=== PATIENT | male | born 1925 | race Caucasian/White ===

== ENCOUNTER 2016-10-21 16:54 | Inpatient (IN) | payer MEDICARE, BC ==
--- NOTE | ~2016-10-21 | DS ---
Discharge Summary [address] [place]. [address] NAME: DENISE JONAS : [birth year] STATUS : DIS IN PAT#: [id number] AGE: 89 ADM/REG DATE : 10/21/16 MR#: [id number] REPORT SERV DATE: 10/26/16 DICTATED BY: ROSCOE FRANKEL DATE: 10/26/16 REPORT STATUS : Draft TRANSCRIBED BY: MODL DATE: 10/26/16 ADMISSION DATE: 10/21/2016 DISCHARGE DATE: 10/26/2016 DISCHARGE DIAGNOSES: 1. Pneumonia with sepsis, present on admission, much improved and resolving. 2. Chronic kidney disease. 3. Hypertension. 4. Mild dementia. 5. Atrial fibrillation. 6. History of recent pacemaker placement. 7. Generalized weakness and deconditioned state. CONSULTANTS: None. PROCEDURES: None. HOSPITAL COURSE: This is an 89-year-old gentleman who was admitted to the hospital with a possible HCAP. For details, please refer to H and P by Dr. Lexi Rendon. In summary, the patient was admitted and was treated aggressively with IV fluids as well as broad- spectrum antibiotics. Fortunately, the patient did respond very well, and although the patient was septic on initial presentation, the patient's condition steadily improved. Over the course of the hospital stay, the patient's white blood cell count had normalized and the patient's procalcitonin level also came down to normal levels. All the cultures have been negative and the patient's antibiotics was titrated down to Levaquin which he tolerated well and remained stable on over the past couple of days. The patient was seen by Physical Therapy who recommended a fpc facility discharge, which the patient was agreeable to. The patient is thus now being discharged to [facility] to continue to be cared for as an outpatient. By the day of discharge, the patient was able to come off the oxygen. DISPOSITION: [facility]. DISCHARGE MEDICATIONS: Two more doses of p.o. Levaquin, otherwise no changes to home medications. FOLLOWUP: Please follow up with PCP in the next one to two weeks. A total of 35 minutes spent in coordinating this patient's discharge today. DICTATED BY: MD KAREN Severino/MOUNIKA Discharge Summary [place] [address] [address] [place]. [id number] NAME: DENISE JONAS : [birth year] STATUS : DIS IN PAT#: [id number] AGE: 89 ADM/REG DATE : 10/21/16 MR#: [id number] REPORT SERV DATE: 10/26/16 DICTATED BY: ROSCOE FRANKEL DATE: 10/26/16 REPORT STATUS : Draft TRANSCRIBED BY: MODL DATE: 10/26/16 Roscoe Frankel MD / [id number] CC: MD Opal Severino NP
--- NOTE | ~2016-10-21 | HP ---
History And Physical [place] [id number] [facility] [place]. [address] NAME: DENISE JONAS : [birth year] STATUS : ADM IN [facility]#: [id number] AGE: 89 ADM/REG DATE : 10/21/16 MR#: [id number] REPORT SERV DATE: 10/21/16 DICTATED BY: FRIEDA LUNA DATE: 10/21/16 REPORT STATUS : Draft TRANSCRIBED BY: MODL DATE: 10/21/16 DATE OF ADMISSION: 10/21/2016 HISTORY OF PRESENT ILLNESS: This is a very pleasant 89-year-old male, who was transferred from [facility] because of fever, cough, shaking chills, and temperature was 102 orally and oxygen saturation was 88 on room air. The patient had pacemaker placement on 10/16/[address] Ryan LEYVA. The patient was sent from [facility] with concern of possible pacemaker infection. The patient is also having cough with whitish sputum production. He denies any chest pain. No shortness of breath. He had mild wheezing. He knows that he is at [facility]. He knows that it is the year of 2016. He does not complain of severe pain at the pacemaker site. The pacemaker site looks clean, in healing stage. REVIEW OF SYSTEMS: All 14-point review of systems done and negative except what is stated in the history of present illness. The patient has a little bit slow reaction, but he can answer questions appropriately, and he is very weak. His temperature in the emergency room was 101.8. Blood cultures were already drawn in the emergency room and he was given Zosyn and vancomycin in the emergency room. PAST MEDICAL HISTORY: Collected from the patient as well as from medical records. The patient has history of atrial fibrillation/flutter, hypertension, chronic kidney disease stage 3, dementia, chronic shoulder pain, he is oxygen dependent and he uses 2 L of oxygen by nasal cannula, he has pulmonary hypertension, chronic anemia likely related to chronic kidney disease, history of falls and recent fall according to the medical records that were sent to our emergency department from his primary care physician, he also has history of anemia of chronic disease, glaucoma, skin cancer. History of orthostatic hypotension. He is chronically on Eliquis for his atrial fibrillation/flutter. Questionable history of coronary artery disease, history of pneumonia in the past, history of atelectasis. He also has hypothyroidism. 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 SOCIAL HISTORY: He is a . No alcohol. He never smoked. No recreational drug use. [facility]. He has a son in [place]. His daughter is in [place]. FAMILY HISTORY: The patient cannot recall what medical problems his parents had. ALLERGIES: NO KNOWN DRUG ALLERGIES. HOME MEDICATIONS: Include Tylenol 650 p.o. q.6 hours p.r.n., albuterol two puffs inhaled q.4 hours p.r.n. and nebulized every six hours p.r.n., Eliquis 2.5 p.o. b.i.d., Artificial Tears one drop 4 times a day as needed, vitamin C 500 mg daily, aspirin 81 mg a day, vitamin D 500 units daily, clonidine 0.1 mg p.o. q.8 hours p.r.n. for systolic blood pressure more than 175, Depakote 125 mg at bedtime, Aricept 10 mg daily, Lexapro 10 mg daily, Nexium 20 mg a History And Physical [address] [address] NAME: DENISE JONAS : [birth year] STATUS : ADM IN [facility]#: [id number] AGE: 89 ADM/REG DATE : 10/21/16 MR#: [id number] REPORT SERV DATE: 10/21/16 DICTATED BY: FRIEDA LUNA DATE: 10/21/16 REPORT STATUS : Draft TRANSCRIBED BY: MOUNIKA DATE: 10/21/16 day, Efudex 5% cream apply topically daily p.r.n., folic acid 1 mg daily, glucosamine chondroitin 1 tablet p.o. daily, Atrovent 2 puffs inhaled twice a day, levothyroxine 50 mcg a day, Imodium 2 mg p.o. twice a day p.r.n., Claritin 10 mg p.o. daily as needed, Ativan 0.5 mg p.o. q.6 hours p.r.n. for anxiety, Namenda 5 mg at bedtime, Remeron 15 mg p.o. at bedtime, multivitamins daily, nitroglycerin 0.4 mg sublingually p.r.n., MiraLAX one packet p.o. daily as needed, Senokot 2 tablets p.o. at bedtime, Zanaflex 2 mg p.o. three times a day p.r.n., Ultram 50 mg p.o. q.4 hours p.r.n., trazodone 50 mg at bedtime. PHYSICAL EXAMINATION: GENERAL: Well-nourished, well-developed, obese male, not in acute distress. Resting quietly. Feeling very weak. VITAL SIGNS: Blood pressure 176/52, temperature 101.8, heart rate 98, respiratory rate 12, oxygen saturation 89 on 2 L nasal cannula. HEENT: Head atraumatic, normocephalic. Conjunctivae clear. Pupils are equal and reactive to light and accommodation. Extraocular muscles are intact. NECK: Supple. Trachea is midline. No supraclavicular or cervical lymphadenopathy. LUNGS: Coarse breath sounds bilaterally with mild wheezing. Slightly decreased respiratory effort. CARDIOVASCULAR: Regular rate and rhythm. Point of maximal impulse not displaced. ABDOMEN: Obese, soft, nontender, nondistended. Positive normoactive bowel sounds. EXTREMITIES: No clubbing, no cyanosis. Trace edema. NEUROLOGIC: He is slightly lethargic, but he wakes up very easily. He is just sleepy. He can answer questions. He can follow commands. Muscle strength is 5/5 bilaterally on upper and lower extremities. He is alert. He is oriented to time, place, and person. LABORATORY RESULTS: Sodium 147, potassium 4.7, chloride 111, carbon dioxide 33, BUN 27, creatinine 1.81, blood sugar 125. His baseline creatinine fluctuates from 1.7 to 2, currently creatinine is at baseline. White count 13.7, hemoglobin 11.1, hematocrit 35.6, platelet count 163. Urinalysis did not show any evidence of UTI. Blood cultures are drawn, currently pending. Chest x-ray was done in the emergency room, official report is pending, there is a questionable infiltrate on the right side and cardiomegaly. Influenza A and B screen was negative. Lactic acid level was 1.9. ASSESSMENT AND PLAN: This is a very pleasant 89-year-old male with a history of chronic kidney disease, history of atrial fibrillation/flutter, history of sick sinus syndrome, history of pacemaker placement less than a week ago on 10/16/2016, history of hypertension, presented with: 1. Fever and chills. 2. Leukocytosis secondary to above. 3. Questionable pneumonia as a clinical picture. 4. Question if fever is related to his recent pacemaker placement. 5. Chronic kidney disease with creatinine being at baseline. 6. Hypertension. 7. Mild dementia. 8. History of falls. 9. Chronically on Eliquis. History And Physical [address] [address] NAME: DENISE JONAS : [birth year] STATUS : ADM IN [facility]#: [id number] AGE: 89 ADM/REG DATE : 10/21/16 MR#: [id number] REPORT SERV DATE: 10/21/16 DICTATED BY: FRIEDA LUNA DATE: 10/21/16 REPORT STATUS : Draft TRANSCRIBED BY: MOUNIKA DATE: 10/21/16 We will admit the patient to cardiac telemetry bed. For his fever, his blood cultures are already drawn and he is started on intravenous antibiotics. Intravenous antibiotics are vancomycin and Rocephin, and I will add also oral azithromycin. He has mild wheezing and congestion. We will start him also on albuterol breathing treatment. We will monitor him closely. I will check also procalcitonin level. For further delineation if the patient has pneumonia, we will order CT of the chest without contrast. 1. History of recent pacemaker placement. The patient's skin around the pacemaker looks clean. I do not see any obvious redness or changes in the temperature. We will ask membership assistant to evaluate these. We will consult Dr. Davis, as well as we will check echocardiogram. 2. Chronic kidney disease. His creatinine is currently at baseline. 3. Weakness and mild lethargy secondary to fever, but most of the time he is awake. He is on multiple sedative medications. I wrote to hold them if the patient is oversedated. My partner will see this patient starting tomorrow morning. At the same time, we will check his EKG and troponins. We will check his BNP and TSH, and magnesium. MG/MODL Frieda Luna M.D. / [id number] CC: Opal Calhoun NP
[2016-10-21 16:15] LABS: BASOPHILS 0.3 %; BASOPHILS ABSOLUTE 0.04 10/3/uL (0.0-0.16); EOSINOPHILS ABSOLUTE 0.41 10/3/uL (0.0-0.53); HEMATOCRIT 35.6 % (40.0-51.0); HEMOGLOBIN 11.1 g/dL (13.6-17.8); IMMATURE GRANULOCYTES 0.5 %; IMMATURE GRANULOCYTES ABSOLUTE 0.07 10/3/uL (0.0-0.11); LYMPHOCYTES 11.6 %; LYMPHOCYTES ABSOLUTE 1.59 10/3/uL (0.67-4.30); MEAN CORPUS HGB CONC 31.2 g/dL (32.0-36.0); MEAN CORPUSCULAR HEMOGLOB 28.2 pg (26.0-34.0); MEAN CORPUSCULAR VOLUME 90.4 fL (80-100); MEAN PLATELET VOLUME 10.2 fL (9.2-13.0); MONOCYTES 7.1 %; MONOCYTES ABSOLUTE 0.97 10/3/uL (0.21-1.20); NEUTROPHILS 77.5 %; NEUTROPHILS ABSOLUTE 10.59 10/3/uL (2.02-8.40); RBC DISTRIBUTION WIDTH 17.9 % (12.0-16.0); RED CELL COUNT 3.94 10/6/uL (4.7-6.1); WHITE BLOOD CELLS 13.7 10/3/uL (4.5-10.5)
[2016-10-21 16:22] LABS: MANUAL DIFF NO %; PLATELET COUNT 163 10/3/uL (150-400)
[2016-10-21 16:29] LABS: ALBUMIN 2.6 G/DL (3.5-5.0); CHLORIDE, SERUM 111 MMOL/L (96-112); CO2 (CARBON DIOXIDE) 33 MMOL/L (24-34); CREATININE 1.81 MG/DL (0.70-1.30); GFR AFRICAN AMERICAN 38 ML/MIN (>=60); GFR NON AFRICAN AMERICAN 32 ML/MIN (>=60); POTASSIUM, SERUM 4.7 MMOL/L (3.5-5.3); SGOT(AST) 22 U/L (5-40); SGPT(ALT) 14 U/L (5-65); SODIUM, SERUM 147 MMOL/L (135-148); TOTAL BILIRUBIN 0.3 MG/DL (0-1.2); TOTAL PROTEIN 6.5 G/DL (6.0-8.5)
[2016-10-21 16:30] LABS: A/G RATIO 0.7 (0.7-1.9); ALKALINE PHOSPHATASE 101 U/L (45-117); BUN (BLOOD UREA NITROGEN) 27 MG/DL (6-23); GLOBULIN 3.9 G/DL (2.5-4.1); GLUCOSE, SERUM 125 MG/DL (60-99)
[2016-10-21 16:33] LABS: LACTATE 1.9 MMOL/L (0.3-2.4)
[~2016-10-21 16:54] MED LIST: ALBUTEROL5 INH; ARICEPT10 PO; ASAB PO; ATV.5 PO; CARD60 PO; CAT1 PO; CLARIT10 PO; COSAMIN DS1 TAB PO; D 5000 PO; DEPAKOTE 125 M125 MG PO; DEPASPRINK PO; DUONEB INH; EFUDEX CREAM 5%40 GM TOP; ELIQUIS 2.5 MG2.5 MG PO; FOLIC PO; GGEXPSF PO; GLUCCHONDR PO; IMOD PO; IPRA17AE INH; K-TABS10 MEQ PO; KDUR10 PO; L20 PO; L40 PO; LEVAQUIN750 MG PO; LEVOTHYROXIN25 MCG PO; LEVOTHYROXIN50 MCG PO; LEXAPRO10 PO; LEXAPRO20 PO; LIQUID TEARS OPH; MIRALAX POWDER1 PKT PO; MIRALAXPKT PO; NAMENDA10 MG PO; NAMENDA5 PO; NEXIUM20 M1 PO; NITROQUICK0.4 MG SL; NITROSTAT0.4 MG SL; OCUVITE PO; PRILO PO; PROVHFA INH; PROVHFA PO; REM15 PO; SENTAB PO; SEROQUEL25 PO; T PO; TRAZ50 PO; ULTRAM50 PO; VENTOLIN HFA INH; VITAMIN D31000 UNIT PO; VITC500 PO; ZANAFLEX2 MG PO; [UNRECOGNIZED DRUG - OTHER] TOP
[2016-10-21 17:49] LABS: INFLUENZA A SCREEN NEGATIVE (NEGATIVE); INFLUENZA B SCREEN NEGATIVE (NEGATIVE)
[2016-10-21 18:36] LABS: ASCORBIC ACID (UR NOT ORDER) 40 (NEG); BILIRUBIN, URINE NEGATIVE (NEG); ER URINALYSIS TAT 0 Hrs 08 Mins; KETONE, URINE NEGATIVE (NEG); LEUKOCYTE ESTERASE(NOT OR NEG (NEG); NITRITE (URINE) NEG (NEG); WBC (NOT ORDERED) (RFLEX) 1 (0-5)
[2016-10-22 01:29] LABS: TROPONIN I 0.03 NG/ML (<0.05)
[2016-10-22 01:31] LABS: CK-MB 0.9 NG/ML; CPK 34 U/L (0-200)
[2016-10-22 07:08] LABS: BASOPHILS 0.1 %; BASOPHILS ABSOLUTE 0.01 10/3/uL (0.0-0.16); EOSINOPHILS 3.9 %; EOSINOPHILS ABSOLUTE 0.47 10/3/uL (0.0-0.53); HEMOGLOBIN 9.5 g/dL (13.6-17.8); IMMATURE GRANULOCYTES 0.2 %; IMMATURE GRANULOCYTES ABSOLUTE 0.03 10/3/uL (0.0-0.11); LYMPHOCYTES ABSOLUTE 2.29 10/3/uL (0.67-4.30); MEAN CORPUS HGB CONC 32.2 g/dL (32.0-36.0); MEAN CORPUSCULAR HEMOGLOB 28.7 pg (26.0-34.0); MEAN CORPUSCULAR VOLUME 89.1 fL (80-100); MEAN PLATELET VOLUME 9.6 fL (9.2-13.0); MONOCYTES 7.1 %; MONOCYTES ABSOLUTE 0.86 10/3/uL (0.21-1.20); NEUTROPHILS 69.7 %; PLATELET COUNT 130 10/3/uL (150-400); RBC DISTRIBUTION WIDTH 18.3 % (12.0-16.0); RED CELL COUNT 3.31 10/6/uL (4.7-6.1); WHITE BLOOD CELLS 12.1 10/3/uL (4.5-10.5)
[2016-10-22 07:09] LABS: HEMATOCRIT 29.5 % (40.0-51.0); MANUAL DIFF NO %
[2016-10-22 07:16] LABS: A/G RATIO 0.6 (0.7-1.9); ALBUMIN 2.1 G/DL (3.5-5.0); ALKALINE PHOSPHATASE 80 U/L (45-117); BUN (BLOOD UREA NITROGEN) 25 MG/DL (6-23); CALCIUM, SERUM 8.6 MG/DL (8.5-10.4); CHLORIDE, SERUM 113 MMOL/L (96-112); CO2 (CARBON DIOXIDE) 30 MMOL/L (24-34); CPK 34 U/L (0-200); CREATININE 1.48 MG/DL (0.70-1.30); GFR AFRICAN AMERICAN 48 ML/MIN (>=60); GFR NON AFRICAN AMERICAN 41 ML/MIN (>=60); GLOBULIN 3.3 G/DL (2.5-4.1); GLUCOSE, SERUM 90 MG/DL (60-99); SGOT(AST) 21 U/L (5-40); SGPT(ALT) 13 U/L (5-65); SODIUM, SERUM 148 MMOL/L (135-148); TOTAL BILIRUBIN 0.3 MG/DL (0-1.2); TOTAL PROTEIN 5.4 G/DL (6.0-8.5); TROPONIN I 0.04 NG/ML (<0.05); ULTRASENSITIVE TSH 0.674 MCIU/ML (0.358-3.740)
[2016-10-22 12:26] LABS: C-REACTIVE PROTEIN 75.1 MG/L (<8.0)
[2016-10-22 12:59] LABS: PROCALCITONIN 0.46 ng/mL (<0.5)
[2016-10-22 13:36] LABS: CK-MB 1.1 NG/ML; CPK 45 U/L (0-200); TROPONIN I 0.04 NG/ML (<0.05)
[2016-10-23 06:09] LABS: HEMOGLOBIN 10.4 g/dL (13.6-17.8); MEAN CORPUS HGB CONC 31.6 g/dL (32.0-36.0); MEAN CORPUSCULAR HEMOGLOB 28.7 pg (26.0-34.0); MEAN CORPUSCULAR VOLUME 90.6 fL (80-100); MEAN PLATELET VOLUME 10.1 fL (9.2-13.0); PLATELET COUNT 148 10/3/uL (150-400); RBC DISTRIBUTION WIDTH 17.9 % (12.0-16.0); RED CELL COUNT 3.63 10/6/uL (4.7-6.1); WHITE BLOOD CELLS 10.1 10/3/uL (4.5-10.5)
[2016-10-23 06:11] LABS: HEMATOCRIT 32.9 % (40.0-51.0); MANUAL DIFF YES %
[2016-10-23 06:45] LABS: ANISOCYTOSIS 1+ (5-10/OIF) (0-5/OIF); BAND NEUTROPHILS 6 %; HYPOCHROMIA 1+ (3-10/OIF) (0-2/OIF); LYMPHOCYTES 32 %; LYMPHOCYTES ABSOLUTE (CALC) 3.23 10/3/uL (0.67-4.30); MACROCYTES 1+ (5-10/OIF) (0-5/OIF); MONOCYTES 9 %; MONOCYTES ABSOLUTE (CALC) 0.91 10/3/uL (0.21-1.20); NEUTROPHILS ABSOLUTE (CALC) 5.96 10/3/uL (2.02-8.40); PLATELET ESTIMATE SLT DEC (ADEQUATE); POLYCHROMASIA 1+ (2-5/OIF) (0-1/OIF); SEGMENTED NEUTROPHIL (0) 53 %; TOTAL NUCLEATED CELLS 100
[2016-10-23 10:05] LABS: BUN (BLOOD UREA NITROGEN) 26 MG/DL (6-23); CALCIUM, SERUM 8.8 MG/DL (8.5-10.4); CHLORIDE, SERUM 108 MMOL/L (96-112); CO2 (CARBON DIOXIDE) 33 MMOL/L (24-34); CREATININE 1.56 MG/DL (0.70-1.30); GFR AFRICAN AMERICAN 45 ML/MIN (>=60); GFR NON AFRICAN AMERICAN 39 ML/MIN (>=60); GLUCOSE, SERUM 120 MG/DL (60-99); POTASSIUM, SERUM 4.3 MMOL/L (3.5-5.3); SODIUM, SERUM 145 MMOL/L (135-148)
[2016-10-23 12:29] LABS: BUN (BLOOD UREA NITROGEN) 25 MG/DL (6-23); CALCIUM, SERUM 8.5 MG/DL (8.5-10.4); CHLORIDE, SERUM 110 MMOL/L (96-112); CO2 (CARBON DIOXIDE) 34 MMOL/L (24-34); CREATININE 1.56 MG/DL (0.70-1.30); GFR AFRICAN AMERICAN 45 ML/MIN (>=60); GFR NON AFRICAN AMERICAN 39 ML/MIN (>=60); GLUCOSE, SERUM 111 MG/DL (60-99); POTASSIUM, SERUM 4.2 MMOL/L (3.5-5.3); SODIUM, SERUM 145 MMOL/L (135-148)
[2016-10-23 12:31] LABS: T PROTEIN (ELECT)(NOT OR 5.2 G/DL (6.0-8.5)
[2016-10-24 05:22] LABS: BASOPHILS 0.4 %; BASOPHILS ABSOLUTE 0.04 10/3/uL (0.0-0.16); EOSINOPHILS 5.7 %; EOSINOPHILS ABSOLUTE 0.57 10/3/uL (0.0-0.53); HEMATOCRIT 33.7 % (40.0-51.0); HEMOGLOBIN 10.6 g/dL (13.6-17.8); IMMATURE GRANULOCYTES 0.3 %; IMMATURE GRANULOCYTES ABSOLUTE 0.03 10/3/uL (0.0-0.11); MEAN CORPUS HGB CONC 31.5 g/dL (32.0-36.0); MEAN CORPUSCULAR VOLUME 88.9 fL (80-100); MEAN PLATELET VOLUME 10.5 fL (9.2-13.0); MONOCYTES 7.1 %; MONOCYTES ABSOLUTE 0.71 10/3/uL (0.21-1.20); NEUTROPHILS 43.5 %; NEUTROPHILS ABSOLUTE 4.35 10/3/uL (2.02-8.40); PLATELET COUNT 163 10/3/uL (150-400); RBC DISTRIBUTION WIDTH 17.8 % (12.0-16.0); RED CELL COUNT 3.79 10/6/uL (4.7-6.1)
[2016-10-24 05:25] LABS: MANUAL DIFF NO %
[2016-10-24 05:26] LABS: BUN (BLOOD UREA NITROGEN) 25 MG/DL (6-23); CALCIUM, SERUM 8.8 MG/DL (8.5-10.4); CHLORIDE, SERUM 111 MMOL/L (96-112); CO2 (CARBON DIOXIDE) 32 MMOL/L (24-34); CREATININE 1.53 MG/DL (0.70-1.30); GFR AFRICAN AMERICAN 46 ML/MIN (>=60); GFR NON AFRICAN AMERICAN 40 ML/MIN (>=60); GLUCOSE, SERUM 93 MG/DL (60-99); POTASSIUM, SERUM 4.5 MMOL/L (3.5-5.3); SODIUM, SERUM 147 MMOL/L (135-148)
[2016-10-24 05:45] LABS: C-REACTIVE PROTEIN 57.1 MG/L (<8.0)
[2016-10-24 10:06] LABS: A/G 0.95 RATIO (0.9-2.10); ALB RELATIVE % 48.8 % (60.0-89.0); ALBUMIN (ELECTRO) 2.54 GM/DL (3.2-5.5); ALPHA 1 (ELECTRO) 0.25 GM/DL (0.1-0.4); ALPHA 1 RELAT % (NOT ORD) 4.8 % (1.0-4.0); ALPHA 2 (ELECTRO) 0.88 GM/DL (0.5-1.10); BETA GLOBULIN (SPE) 0.92 GM/DL (0.60-1.30); BETA RELATIVE % 17.6 % (9.0-22.0); GAMMA GLOBULIN (SPE) 0.61 G/DL (0.70-1.60); GAMMA RELAT % 11.8 % (6.0-22.0)
[2016-10-25 05:24] LABS: HEMATOCRIT 32.5 % (40.0-51.0); HEMOGLOBIN 10.3 g/dL (13.6-17.8); MEAN CORPUS HGB CONC 31.7 g/dL (32.0-36.0); MEAN CORPUSCULAR HEMOGLOB 27.9 pg (26.0-34.0); MEAN CORPUSCULAR VOLUME 88.1 fL (80-100); MEAN PLATELET VOLUME 10.5 fL (9.2-13.0); PLATELET COUNT 160 10/3/uL (150-400); RBC DISTRIBUTION WIDTH 17.7 % (12.0-16.0); RED CELL COUNT 3.69 10/6/uL (4.7-6.1); WHITE BLOOD CELLS 12.1 10/3/uL (4.5-10.5)
[2016-10-25 05:25] LABS: MANUAL DIFF YES %
[2016-10-25 05:32] LABS: CALCIUM, SERUM 8.9 MG/DL (8.5-10.4); CHLORIDE, SERUM 107 MMOL/L (96-112); CO2 (CARBON DIOXIDE) 30 MMOL/L (24-34); CREATININE 1.52 MG/DL (0.70-1.30); GFR AFRICAN AMERICAN 46 ML/MIN (>=60); GFR NON AFRICAN AMERICAN 40 ML/MIN (>=60); GLUCOSE, SERUM 94 MG/DL (60-99); POTASSIUM, SERUM 4.6 MMOL/L (3.5-5.3); SODIUM, SERUM 143 MMOL/L (135-148)
[2016-10-25 05:40] LABS: BUN (BLOOD UREA NITROGEN) 29 MG/DL (6-23)
[2016-10-25 05:42] LABS: ANISOCYTOSIS 1+ (5-10/OIF) (0-5/OIF); BAND NEUTROPHILS 3 %; EOSINOPHILS 1 %; EOSINOPHILS ABSOLUTE (CALC) 0.12 10/3/uL (0.0-0.53); LYMPHOCYTES 50 %; LYMPHOCYTES ABSOLUTE (CALC) 6.05 10/3/uL (0.67-4.30); MONOCYTES 2 %; MONOCYTES ABSOLUTE (CALC) 0.24 10/3/uL (0.21-1.20); NEUTROPHILS ABSOLUTE (CALC) 5.69 10/3/uL (2.02-8.40); PLATELET ESTIMATE ADQ (ADEQUATE); SEGMENTED NEUTROPHIL (0) 44 %; TOTAL NUCLEATED CELLS 100
[2016-10-25 06:20] LABS: PROCALCITONIN 0.25 ng/mL (<0.5)
[2016-10-26 05:01] LABS: CALCIUM, SERUM 8.8 MG/DL (8.5-10.4); CHLORIDE, SERUM 112 MMOL/L (96-112); CO2 (CARBON DIOXIDE) 29 MMOL/L (24-34); CREATININE 1.74 MG/DL (0.70-1.30); GFR AFRICAN AMERICAN 39 ML/MIN (>=60); GFR NON AFRICAN AMERICAN 34 ML/MIN (>=60); GLUCOSE, SERUM 95 MG/DL (60-99); POTASSIUM, SERUM 4.7 MMOL/L (3.5-5.3); SODIUM, SERUM 148 MMOL/L (135-148)
[2016-10-26 05:02] LABS: BUN (BLOOD UREA NITROGEN) 34 MG/DL (6-23)
[2016-10-26 05:37] LABS: BASOPHILS 0.5 %; BASOPHILS ABSOLUTE 0.04 10/3/uL (0.0-0.16); EOSINOPHILS 5.8 %; HEMATOCRIT 33.3 % (40.0-51.0); HEMOGLOBIN 10.5 g/dL (13.6-17.8); IMMATURE GRANULOCYTES 0.8 %; IMMATURE GRANULOCYTES ABSOLUTE 0.07 10/3/uL (0.0-0.11); LYMPHOCYTES 38.4 %; LYMPHOCYTES ABSOLUTE 3.29 10/3/uL (0.67-4.30); MANUAL DIFF NO %; MEAN CORPUS HGB CONC 31.5 g/dL (32.0-36.0); MEAN CORPUSCULAR HEMOGLOB 27.9 pg (26.0-34.0); MEAN CORPUSCULAR VOLUME 88.6 fL (80-100); MEAN PLATELET VOLUME 10.7 fL (9.2-13.0); MONOCYTES 9.5 %; MONOCYTES ABSOLUTE 0.81 10/3/uL (0.21-1.20); NEUTROPHILS ABSOLUTE 3.85 10/3/uL (2.02-8.40); PLATELET COUNT 179 10/3/uL (150-400); RED CELL COUNT 3.76 10/6/uL (4.7-6.1); WHITE BLOOD CELLS 8.6 10/3/uL (4.5-10.5)
[2016-10-26 06:01] LABS: PROCALCITONIN 0.18 ng/mL (<0.5)
[2017-02-20] MEDS ORDERED: DUONEB INH ×2 (00:36)
[2017-02-20] MEDS ORDERED: NEXIUM20 M1 PO (00:36)
[2017-02-20] MEDS ORDERED: PULRESP.5 INH (00:37)
[2017-02-20] MEDS ORDERED: NAMENDA5 PO (00:37)
[2017-02-20] MEDS ORDERED: LEXAPRO10 PO (00:37)
[2017-02-20] MEDS ORDERED: SYN.05 PO (00:38)
[2017-02-20] MEDS ORDERED: TRAZ50 PO (00:38)
[2017-02-20] MEDS ORDERED: REM15 PO (00:38)
[2017-02-20] MEDS ORDERED: ELIQUIS 2.5 MG2.5 MG PO (00:38)
[2017-02-20] MEDS ORDERED: DEPAKOTE 125 M125 MG PO (00:38)
[2017-02-20] MEDS ORDERED: T PO (00:39)
[2017-02-20] MEDS ORDERED: TEARS PURE OPH (00:39)
[2017-02-20] MEDS ORDERED: DSS PO (00:40)
[2017-02-20] MEDS ORDERED: ASAB PO (00:40)
[2017-02-20] MEDS ORDERED: CAT1 PO (00:40)
[2017-02-20] MEDS ORDERED: CLARIT10 PO (00:40)
[2017-02-20] MEDS ORDERED: ATV.5 PO (00:41)
[2017-02-20] MEDS ORDERED: VITC500 PO (00:41)
[2017-02-20] MEDS ORDERED: MIRALAX POWDER1 PKT PO (00:41)
[2017-02-20] MEDS ORDERED: NITROSTAT0.4 MG SL (00:41)
[2017-02-20] MEDS ORDERED: GLUCOSAMINEPO PO (00:43)
[2017-02-20] MEDS ORDERED: PRESERVISION A1 EACH PO (00:43)
[2017-02-20] MEDS ORDERED: LORAZEPAM 2MG/ML INJ IM (00:44)
[2017-02-20] MEDS ORDERED: NORCO1 TA1 PO (00:44)
[2017-02-20] MEDS ORDERED: L40 PO (00:45)
[2017-02-20] MEDS ORDERED: KDUR10 PO (00:45)
[2017-02-20] MEDS ORDERED: P20 PO (00:46)
[2017-02-20] MEDS ORDERED: P10 PO (00:47)
== END 2016-10-26 16:55 | DRG 871 ==
LOC: ER 16:54 → 6NO 22:07
PROVIDERS: Emergency Medicine; Hospitalist; Internal Medicine
DX: A41.9 Sepsis, unspecified organism (principal); J18.9 Pneumonia, unspecified organism; E87.0 Hyperosmolality and hypernatremia; D69.6 Thrombocytopenia, unspecified; I13.0 Hypertensive heart and chronic kidney disease with heart failure and stage 1 through stage 4 chronic kidney disease, or unspecified chronic kidney disease; F03.90 Unspecified dementia, unspecified severity, without behavioral disturbance, psychotic disturbance, mood disturbance, and anxiety; I27.2 Other secondary pulmonary hypertension; I50.32 Chronic diastolic (congestive) heart failure; I48.92 Unspecified atrial flutter; N18.3 Chronic kidney disease, stage 3 (moderate); I48.91 Unspecified atrial fibrillation; D63.8 Anemia in other chronic diseases classified elsewhere; H40.9 Unspecified glaucoma; I95.1 Orthostatic hypotension; E03.9 Hypothyroidism, unspecified; Z95.0 Presence of cardiac pacemaker; Z91.81 History of falling; Z85.828 Personal history of other malignant neoplasm of skin; Z79.01 Long term (current) use of anticoagulants; Z87.01 Personal history of pneumonia (recurrent); Z96.651 Presence of right artificial knee joint
CPT/HCPCS: 71010; 71250; 80048; 80053; 81001; 82550; 82553; 83605; 83735; 83880; 84145; 84155; 84165; 84443; 84484; 85025; 86140; 86334; 87040; 87804; 93005; 94640; 96365; 96368; 96375; 97116-GP; 97161-GP; 99291; A9270-GY; C8929; G8978-CK-GP; G8979-CK-GP; G8980-CK-GP; J0360; J2543; J3370; Q9957